=== PATIENT | male | born 1980 | race African-American/Black ===

== ENCOUNTER 2016-09-22 10:08 | Emergency (ER) | payer OTHER ==
[~2016-09-22] VITALS: Ht 175.3 cm; Wt 102.1 kg
--- NOTE | 2016-09-22 11:01 | PHYS DOC ---
Past Medical History Past Medical History: GERD, Hypertension Past Surgical History: No Surgical History Adult General Chief Complaint Chief Complaint: LOWER EXT PAIN HPI HPI Patient is a 36 year old male presents emergency department via [facility]. She states approximately 2 weeks ago he was running and developed severe pain in the back of his right knee. He states that time he has had increased bruising and discomfort. He denies any numbness or tingling down to his lower extremities. Patient states that he's been ambulating on crutches. He states his been taken Tylenol and ibuprofen for pain and discomfort which is helped some. He denies further discomforts. Review of Systems Review of Systems Constitutional: Denies fever or chills [] Eyes: Denies change in visual acuity, redness, or eye pain [] HENT: Denies nasal congestion or sore throat [] Respiratory: Denies cough or shortness of breath [] Cardiovascular: No additional information not addressed in HPI [] GI: Denies abdominal pain, nausea, vomiting, bloody stools or diarrhea [] : Denies dysuria or hematuria [] Musculoskeletal: Denies back pain. C/o right leg pain Integument: Denies rash or skin lesions [] Neurologic: Denies headache, focal weakness or sensory changes [] Allergies Allergies Allergies Coded Allergies Type Severity Reaction Last Updated Verified No Known Drug Allergies 09/22/16 No Physical Exam Physical Exam Constitutional: Well developed, well nourished, no acute distress, non-toxic appearance. [] HENT: Normocephalic, atraumatic, bilateral external ears normal, oropharynx moist, no oral exudates, nose normal. [] Eyes: PERRLA, EOMI, conjunctiva normal, no discharge. [] Neck: Normal range of motion, no tenderness, supple, no stridor. [] Cardiovascular:Heart rate regular rhythm, no murmur [] Lungs & Thorax: Bilateral breath sounds clear to auscultation [] Skin: Warm, dry, no erythema, no rash. [] Back: No tenderness Extremities: Right posterior knee and lower leg tenderness, no cyanosis, no clubbing, ROM intact, no edema. Posterior leg appears to be bruised. Does appear to be warm. No swelling noted. Negative Homans sign peripheral pulses 2+ cap refill brisk less than 2 seconds. Neurologic: Alert and oriented X 3, normal motor function, normal sensory function, no focal deficits noted. [] Psychologic: Affect normal, judgement normal, mood normal. [] Current Patient Data Vital Signs Vital Signs Date Time Temp Pulse Resp B/P Pulse Ox O2 Delivery O2 Flow Rate FiO2 09/22/16 10:53 98.4 64 16 174/106 99 Room Air 98.4 Lab Values Laboratory Tests Test 09/22/16 11:08 White Blood Count 5.9x10^3/uL (4.0-11.0) Red Blood Count 5.33x10^6/uL (4.30-5.70) Hemoglobin 15.2g/dL (13.0-17.5) Hematocrit 45.8% (39.0-53.0) Mean Corpuscular Volume 86fL (79-100) Mean Corpuscular Hemoglobin 29pg (25-35) Mean Corpuscular Hemoglobin Concent 33g/dL (31-37) Red Cell Distribution Width 14.4% (11.5-14.5) Platelet Count 260x10^3/uL (140-400) Neutrophils (%) (Auto) 54% (31-73) Lymphocytes (%) (Auto) 30% (24-48) Monocytes (%) (Auto) 14% (0-9) H Eosinophils (%) (Auto) 2% (0-3) Basophils (%) (Auto) 1% (0-3) Neutrophils # (Auto) 3.2x10^3uL (1.8-7.7) Lymphocytes # (Auto) 1.7x10^3/uL (1.0-4.8) Monocytes # (Auto) 0.8x10^3/uL (0.0-1.1) Eosinophils # (Auto) 0.1x10^3/uL (0.0-0.7) Basophils # (Auto) 0.0x10^3/uL (0.0-0.2) Prothrombin Time 12.5SEC (11.7-14.0) Prothrombin Time INR 1.0 (0.8-1.1) Laboratory Tests 09/22/16 11:08 EKG EKG [] Radiology/Procedures Radiology/Procedures [facility] [address] [place], [place] [id number] IMAGING REPORT Signed PATIENT: KRISTOFER YODER ACCOUNT: [id number] : 1980 LOCATION: ER AGE: 36 SEX: M EXAM STATUS: PRE ER ORD. PHYSICIAN: RONAK RAMSAY NP REASON: bruising and pain PROCEDURE: KNEE RIGHT 3V Three-view study of the right knee History: Right knee pain with posterior bruising of the mid thigh to mid calf. No known injury. Findings: No acute fracture or dislocation or osteolytic process is seen. No significant arthritic change is seen. IMPRESSION: No acute osseous abnormality is evident. DICTATED and SIGNED BY: ILIANA CARO MD DATE: 09/22/16 1122 CC: RONAK RAMSAY NP ~ [][facility] [address] [place], [place] [id number] IMAGING REPORT Signed PATIENT: KRISTOFER YODER ACCOUNT: [id number] : 1980 LOCATION: ER AGE: 36 SEX: M EXAM STATUS: REG ER ORD. PHYSICIAN: RONAK RAMSAY NP REASON: bruising and pain to posterior leg PROCEDURE: VENOUS LOWER EXTREMITY RIGHT Right leg venous Doppler study: Clinical indications: Right leg swelling and pain. Right leg injury. Severe bruising. Findings: Duplex sonography (including owusu scale evaluation and color flow and waveform spectral analysis) of the proximal aspect of the greater saphenous vein and proximal aspect of the profunda femoral vein and the entire length of the common femoral and superficial femoral and popliteal veins and the tibioperoneal trunk and the proximal aspect of the posterior tibial veins of the right leg was performed. Normal compressibility, augmentation of color Doppler flow after calf compression, and respiratory variation of Doppler flow is seen. Thus, there are no sonographic findings of deep venous thrombosis within these veins. Impression: There are no sonographic findings of deep venous thrombosis within the veins discussed above of the right lower extremity. DICTATED and SIGNED BY: ILIANA CARO MD DATE: 09/22/16 1225 CC: RONAK RAMSAY NP; NO PCP ~ Course & Med Decision Making Course & Med Decision Making Pertinent Labs and Imaging studies reviewed. (See chart for details) Patient was were negative for any bony abnormalities. Ultrasound was negative for any DVTs. Patient will be recommended to use ice packs and elevation as much as possible continue to use the crutches although gentle range of motion is encouraged. Tylenol and ibuprofen for pain and discomfort. Signs and symptoms to return back to emergency department as been provided. Patient agrees with discharge instructions treatment regimens and follow-up recommendations. [] Dragon Disclaimer Dragon Disclaimer This electronic medical record was generated, in whole or in part, using a voice recognition dictation system. Departure Departure Impression: Primary Impression: Strain of knee and leg, right Disposition: HOME, SELF-CARE Condition: STABLE Patient Instructions: Knee Pain, [id number] Additional Instructions: Your x-rays and ultrasound were negative. Continue with Tylenol or ibuprofen for pain and discomfort. Ice packs on 20 minutes off 20 minutes several times a day. Elevation as much as possible. If it is possible to use compression Robi wrap's would be appropriate. Continue to use the crutches whenever you're up ambulating. Follow-up with orthopedic if he continued to have increased pain and discomfort. Return back to emergency percent symptoms of become worse. RONAK RAMSAY NP Sep 22, 2016 11:01
[2016-09-22 11:22] LABS: BASO % 1 % (0-3); EOS % 2 % (0-3); HEMATOCRIT 45.8 % (39.0-53.0); HEMOGLOBIN 15.2 g/dL (13.0-17.5); LYMPH # 1.7 x10^3/uL (1.0-4.8); LYMPH % 30 % (24-48); MEAN CORPUSCULAR HEMOGLOBIN 29 pg (25-35); MEAN CORPUSCULAR HGB CONC 33 g/dL (31-37); MEAN CORPUSCULAR VOLUME 86 fL (79-100); MONO % 14 % (0-9); NEUT % 54 % (31-73); PLATELET COUNT 260 x10^3/uL (140-400); RED BLOOD COUNT 5.33 x10^6/uL (4.30-5.70); RED CELL DISTRIBUTION WIDTH 14.4 % (11.5-14.5); WHITE BLOOD COUNT 5.9 x10^3/uL (4.0-11.0)
--- NOTE | 2016-09-22 11:26 | RAD ---
Three-view study of the right knee History: Right knee pain with posterior bruising of the mid thigh to mid calf. No known injury. Findings: No acute fracture or dislocation or osteolytic process is seen. No significant arthritic change is seen. IMPRESSION: No acute osseous abnormality is evident.
[2016-09-22 11:39] LABS: PROTHROMBIN TIME PATIENT 12.5 SEC (11.7-14.0)
--- NOTE | 2016-09-22 12:32 | RAD ---
Right leg venous Doppler study: Clinical indications: Right leg swelling and pain. Right leg injury. Severe bruising. Findings: Duplex sonography (including owusu scale evaluation and color flow and waveform spectral analysis) of the proximal aspect of the greater saphenous vein and proximal aspect of the profunda femoral vein and the entire length of the common femoral and superficial femoral and popliteal veins and the tibioperoneal trunk and the proximal aspect of the posterior tibial veins of the right leg was performed. Normal compressibility, augmentation of color Doppler flow after calf compression, and respiratory variation of Doppler flow is seen. Thus, there are no sonographic findings of deep venous thrombosis within these veins. Impression: There are no sonographic findings of deep venous thrombosis within the veins discussed above of the right lower extremity.
[2016-09-22 13:02] VITALS: BP 166/106
== END 2016-09-22 13:18 | disposition home or self-care (01) ==
LOC: ER 10:08 → EEVIPCON 10:08 → ER 13:18
DX: S86.911A Strain of unspecified muscle(s) and tendon(s) at lower leg level, right leg, initial encounter (principal); I10 Essential (primary) hypertension; K21.9 Gastro-esophageal reflux disease without esophagitis; X58.XXXA Exposure to other specified factors, initial encounter; Y93.89 Activity, other specified; Y92.89 Other specified places as the place of occurrence of the external cause; Y99.8 Other external cause status
CPT/HCPCS: 36415; 73562; 85027; 85610; 93971; 99285-25